=== PATIENT | female | born 1985 | race Two or more races ===

== ENCOUNTER 2020-07-08 20:43 | Emergency (ER) | payer MEDICARE ==
[~2020-07-08] VITALS: Ht 154.9 cm; Wt 75.0 kg
[2020-07-08 20:49] VITALS: BP 117/60; Ht 154.9 cm; Wt 75.0 kg
[2020-07-08] MEDS ORDERED: CYCLOBENZAPRINE10 MG PO (22:36)
== END 2020-07-08 22:42 | disposition home or self-care (01) ==
LOC: D.ER 20:43
DX: S39.012A Strain of muscle, fascia and tendon of lower back, initial encounter (principal); S16.1XXA Strain of muscle, fascia and tendon at neck level, initial encounter; V89.2XXA Person injured in unspecified motor-vehicle accident, traffic, initial encounter; Y93.9 Activity, unspecified; Y92.9 Unspecified place or not applicable